=== PATIENT | male | born 1945 | race Caucasian/White ===

== ENCOUNTER 2020-08-01 11:34 | Emergency (ER) | payer MEDICARE, SELFPAY ==
[2020-08-01] VITALS (10 sets, daily range): BP systolic 121–148; BP diastolic 63–86; PULSE 71–91; RESP 16–20; TEMP 36.7–37.2; O2SAT 95–99
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
--- NOTE | 2020-08-01 11:44 | ECG_ITS ---
Measurements Intervals [place] Rate: 88 P: 35 LA: 159 QRS: 34 QRSD: 88 T: 20 QT: 350 QTc: 424 Interpretive Statements SINUS RHYTHM DELAYED PRECORDIAL R/S TRANSITION BASELINE ARTIFACT- III, AVF BORDERLINE ECG Electronically Signed On 08-03-2020 7:17:43 CDT by Mayank Edwards D.O.
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
[2020-08-01 12:13] LABS: Basophils Absolute Auto 0.04 K/mm3 (0.00-0.10); Basophils Percent Auto 0.4 % (0.0-1.0); Eosinophils Absolute Auto 0.14 K/mm3 (0.02-0.50); Eosinophils Percent Auto 1.6 % (1.0-6.0); Hematocrit 46.6 % (37.0-46.0); Hemoglobin 16.1 g/dL (12.4-15.3); Immature Granulocyte Absolute 0.03 K/mm3 (0.00-0.00); Immature Granulocyte Percent A 0.3 % (0.0-0.0); Lymphocytes Absolute Auto 1.91 K/mm3 (1.10-4.50); Lymphocytes Percent Auto 21.4 % (18.0-42.0); Mean Corpuscular HGB Conc 34.5 g/dL (32.0-36.0); Mean Corpuscular Volume 86.8 fL (78.0-102.0); Mean Platelet Volume 9.2 fl (8.7-11.0); Monocytes Absolute Auto 0.75 K/mm3 (0.10-0.90); Monocytes Percent Auto 8.4 % (2.0-11.0); Neutrophils Absolute Auto 6.1 K/mm3 (1.7-7.2); Neutrophils Percent Auto 67.9 % (50.0-70.0); Platelet Count Result 231 K/mm3 (150-420); Red Blood Count 5.37 M/mm3 (4.70-6.10); Red Cell Distribution Width 11.4 % (11.6-14.4); White Blood Count 8.9 K/mm3 (4.8-10.8)
[2020-08-01 12:25] LABS: Partial Thromboplastin Time 25.6 SEC (23.90-30.70); Prothrombin Time 10.7 Seconds (9.50-12.10)
[2020-08-01 12:26] LABS: D Dimer 0.28 mg/L (0.19-0.50)
[2020-08-01 12:34] LABS: Alanine Aminotransferase 41 U/L (16-63); Albumin Level 3.7 g/dL (3.4-5.0); Alkaline Phosphatase 40 U/L (46-116); Anion Gap 9 mmol/L (8-16); Aspartate Amino Transferase 27 U/L (15-37); Bilirubin,Total 1.3 mg/dL (0.00-1.00); Blood Urea Nitrogen 18 mg/dL (7-18); Calcium 9.2 mg/dL (8.5-10.1); Carbon Dioxide 25 mmol/L (21-32); Chloride 104 mmol/L (98-108); Estimated CRCL calculation 52 ml/min; Estimated Glomerular Filt Rate > 60; Glucose 107 mg/dL (70-99); NT Pro B Type Natriuretic Pept 56 pg/mL (0-125); Osmolality Calculated 287 mOsm/kg (285-295); Sodium 138 mmol/L (136-145); Total Protein 6.9 g/dL (6.4-8.2)
[2020-08-01 12:35] LABS: Troponin I 26.9 ng/L (0.00-60.4)
[2020-08-01] MEDS: ASPIRIN 81 MG CHEWABLE TABLET 324 MG PO (13:03)
[2020-08-01] MEDS: SODIUM CHLORIDE 0.9% IV 1,000 ML 999 ML IV CONT (13:25)
[2020-08-01 14:41] LABS: Add Urine Microscopic? YES; Appearance Urine Clear (Clear); Bilirubin Urine Negative (Negative); Blood Urine Negative (Negative); Color Urine Yellow (Yellow); Glucose Urine UA Negative (Negative); Ketones Urine Negative (Negative); Leukocyte Esterase Ur Negative LEU/UL (Negative); Nitrate Urine Positive (Negative); Protein Urine Negative (Negative); Specific Grav Ur 1.015 (1.010-1.020); Urobilinogen Urine 0.2 mg/dL (0.2-1.0); pH Urine 5.5 (5.0-8.0)
[2020-08-01 14:49] LABS: Amphetamine Screen Urine Negative (Negative); Barbiturate Screen Urine Negative (Negative); Benzodiazepines Screen Urine Negative (Negative); Cannabinoid Screen Urine Negative (Negative); Cocaine Screen Urine Negative (Negative); Methadone Screen Urine Negative (Negative); Opiate Screen Urine Negative (Negative); Phencyclidine Screen Urine Negative (Negative)
[2020-08-01 14:51] LABS: Bacteria Urine 2+ /hpf; Mucus Urine Few /lpf; RBC Urine 0-2 /hpf (0-2); Squamous Epithelial Cell Urine None seen /hpf (Few); WBC Urine 0-3 /hpf (0-3)
[2020-08-01 15:28] LABS: Troponin I 33.8 ng/L (0.00-60.4)
[2020-08-01 15:32] LABS: SARS-CoV-2 RNA PCR Negative (Negative)
[2020-08-01 18:18] LABS: Troponin I 33.9 ng/L (0.00-60.4)
[2020-08-02] VITALS (7 sets, daily range): BP systolic 124–146; BP diastolic 80–86; PULSE 62–78; RESP 16–20; TEMP 36.7–37.3; O2SAT 95–98
[2020-08-02 00:44] LABS: Troponin I 35.7 ng/L (0.00-60.4)
--- NOTE | 2020-08-02 08:45 | PC.NURSE ---
Patient shaved himself and gave himself a bed bath using bath wipes.
--- NOTE | 2020-08-02 12:53 | PC.NURSE ---
[facility] called to report they will not have a bed available Dr Ansley alfaro notified
[2020-08-02] MEDS: CALCIUM CARB PO (14:29)
[2020-08-02] MEDS: MAGNESIUM PO (14:29)
[2020-08-02] MEDS: ASPIRIN PO (14:29)
[2020-08-02] MEDS: ATORVASTATIN 10 MG TABLET 20 MG PO (14:30)
--- NOTE | 2020-08-02 20:00 | PC.NURSE ---
Patient respirations even and unlabored. Denies pain/complaints/dizziness/chest pain/needs. Patient aware his transfer to [facility] is still pending and the hospital will call here when bed is available.
--- NOTE | 2020-08-02 22:15 | PC.NURSE ---
Coordinator for [facility] called to say they have a room available for patient and gave nurse number to call report to.
--- NOTE | 2020-08-02 22:25 | PC.NURSE ---
Report called to Marine @ [facility]. Patient aware. notified. Patient continues to deny any pain/dizziness/sob/chest pain/complaints.
--- NOTE | 2020-08-02 22:30 | PC.NURSE ---
[facility] called to transport patient to [facility] due to [facility] unable to transport.
--- NOTE | 2020-08-02 23:20 | PC.NURSE ---
Patient leaving per [facility] to go to [facility]. Patient alert and oriented. Patient continues to deny pain/sob/chest pain/dizziness/complaints/needs @ this time. No distress noted.
== END 2020-08-02 23:20 | disposition short-term general hospital (02) ==
LOC: CHSED 11:43 → CHS2ND 17:11
PROVIDERS: Emergency Medicine; Emergency Provider Emergency Medicine
DX: R29.810 Facial weakness (principal); R47.81 Slurred speech; R82.90 Unspecified abnormal findings in urine; Z20.822 Contact with and (suspected) exposure to COVID-19; R06.00 Dyspnea, unspecified
CPT/HCPCS: 36415; 70450; 71045; 80053; 80307; 81001; 83880; 84484; 85025; 85380; 85610; 85730; 87086; 87088; 93005; 96360; 99285; A9270; C9803; J7030; U0003; U0005